=== PATIENT | male | born 1995 | race Two or more races ===

== ENCOUNTER 2021-10-03 18:46 | Inpatient (IN) | payer MEDICAID, OTHER ==
[~2021-10-03] VITALS: Ht 167.6 cm; Wt 88.5 kg
[2021-10-03] MEDS ORDERED: DIPH25 PO (18:48)
[2021-10-03] MEDS ORDERED: ARIP5TAB37 PO (18:48)
[2021-10-03] MEDS ORDERED: TOPI25 PO (18:48)
[2021-10-03 20:34] LABS: BASOPHILS % (AUTO) 1.1 % (0.0-2.0); EOSINOPHILS % (AUTO) 0.8 % (1.0-6.0); HEMATOCRIT 49.1 % (41-53); HEMOGLOBIN 16.5 g/dL (13.5-17.5); LYMPHOCYTES # (AUTO) 2.6 K/uL (1.0-4.8); LYMPHOCYTES % (AUTO) 30.7 % (22.0-44.0); MEAN CORPUSCULAR HEMOGLOBIN 28.9 pg (26.0-34.0); MEAN CORPUSCULAR HGB CONC 33.6 G/dL (31.0-37.0); MEAN CORPUSCULAR VOLUME 86 fL (80-100); MONOCYTES # (AUTO) 0.6 K/uL (0.1-1.0); MONOCYTES % (AUTO) 7.2 % (2.0-9.0); NEUTROPHILS # (AUTO) 5.1 K/uL (1.8-7.7); NEUTROPHILS % (AUTO) 60.2 % (40.0-70.0); PLATELET COUNT (AUTO) 351 K/uL (150-450); RED BLOOD CELL COUNT(AUTO) 5.72 MIL/uL (4.50-5.90); RED CELL DISTRIBUTION WIDTH 14.7 % (11.5-14.5)
[2021-10-03 20:46] LABS: ANION GAP 13 mmol/L (8-16); CALCIUM, TOTAL 9.5 mg/dL (8.8-10.5); CARBON DIOXIDE 23 mmol/L (22-29); CHLORIDE 108 mmol/L (98-107); CREATININE 1.22 mg/dL (0.60-1.30); GLOMERULAR FILTR. RATE CALC > 60 mL/min (>60); GLUCOSE,RANDOM 101 mg/dL (70-110); POTASSIUM 3.6 mmol/L (3.5-5.1); SODIUM SERUM 144 mmol/L (136-145); UREA NITROGEN, BLOOD 13 mg/dL (7-18)
[2021-10-03 20:51] LABS: ALANINE AMINOTRANSFERASE 42 U/L (12-78); ALBUMIN 4.6 g/dL (3.4-5.0); ALKALINE PHOSPHATASE 126 U/L (46-116); ASPARTATE AMINOTRANSFERASE 31 U/L (15-37); BILIRUBIN,TOTAL 1.2 mg/dL (0.1-1.0); TOTAL PROTEIN, SERUM 8.1 g/dL (6.4-8.2)
[2021-10-03] MEDS ORDERED: DiphenhydrAMINE HCL 50 MG/ML VIAL IM ONE (22:15)
[2021-10-03] MEDS ORDERED: LORazepam 2 MG/ML VIAL IM ONE (22:15)
[2021-10-03] MEDS ORDERED: HALOPERIDOL LACTATE 5 MG/ML VIAL IM ONE ×2 (22:15→22:30)
[2021-10-03 23:02] LABS: COVID AG,FIA SOURCE NASAL SWAB
[2021-10-03] MEDS ORDERED: TOPI100T37 PO (23:47)
[2021-10-03] MEDS ORDERED: ARIP10TA38 PO (23:47)
[2021-10-03] MEDS ORDERED: DIPH50CA38 PO (23:47)
[2021-10-04 00:45] LABS: AMPHET/METH SCREEN,URINE NEGATIVE (NEGATIVE); BARBITURATE SCREEN, URINE NEGATIVE (NEGATIVE); BENZODIAZEPINES SCREEN,URINE NEGATIVE (NEGATIVE); CANNABINOID SCREEN,URINE NEGATIVE (NEGATIVE); COCAINE SCREEN,URINE NEGATIVE (NEGATIVE); METHADONE SCREEN, URINE NEGATIVE (NEGATIVE); OPIATE SCREEN,URINE NEGATIVE (NEGATIVE)
[2021-10-04 00:48] LABS: PHENCYCLIDINE SCREEN,URINE NEGATIVE (NEGATIVE)
[2021-10-04 01:17] LABS: APPEARANCE,URINE TURBID (CLEAR); BILIRUBIN,URINE NEGATIVE (NEGATIVE); GLUCOSE, URINE (UA) NEGATIVE (NEGATIVE); LEUKOCYTE ESTERASE ,URINE NEGATIVE (NEGATIVE); NITRATE,URINE NEGATIVE (NEGATIVE); OCCULT BLOOD,URINE TRACE (NEGATIVE); PH,URINE 5.5 (5.0-8.0); PROTEIN,URINE 30-70 mg/dL (NEGATIVE); SPECIFIC GRAVITIY, URINE 1.034 (1.003-1.030); UROBILINOGEN,URINE <=1.0 mg/dL (<=1.0)
[2021-10-04 01:28] LABS: AMORPHOUS SEDIMENT,UR Many /LPF (None Seen); BACTERIA,URINE None Seen /HPF (None Seen); RBC,URINE 0-2 /HPF (0-2); WBC,URINE None Seen /HPF (0-5)
[2021-10-04] MEDS: ZOLPIDEM TARTRATE 10 MG TABLET PO PRN (03:31)
[2021-10-04 10:48] VITALS: BP 112/74
[2021-10-04] MEDS ORDERED: DiphenhydrAMINE HCL 50 MG/ML VIAL ONE (11:48)
[2021-10-04] MEDS ORDERED: LORazepam 2 MG/ML VIAL ONE (11:48)
[2021-10-04] MEDS ORDERED: HALOPERIDOL LACTATE 5 MG/ML VIAL ONE (11:48)
[2021-10-04] MEDS ORDERED: DiphenhydrAMINE HCL 50 MG/ML VIAL IM ONE (12:00)
[2021-10-04] MEDS ORDERED: HALOPERIDOL LACTATE 5 MG/ML VIAL IM ONE (12:00)
[2021-10-04] MEDS ORDERED: LORazepam 2 MG/ML VIAL IM ONE (12:00)
[2021-10-04] MEDS: LORazepam 2 MG TABLET PO PRN (16:16)
[2021-10-04] MEDS: HALOPERIDOL 5 MG TABLET PO PRN (16:16)
[2021-10-04 16:34] VITALS: BP 112/72
[2021-10-05] MEDS ORDERED: ACETAMINOPHEN 325 MG TABLET PO PRN (06:30)
[2021-10-05] MEDS ORDERED: LOPERAMIDE HCL 2 MG CAPSULE PO PRN (06:30)
[2021-10-05] MEDS ORDERED: DOCUSATE SODIUM 100 MG CAPSULE PO PRN (06:30)
[2021-10-05] MEDS ORDERED: ALBUTEROL SULFATE HFA 90 MCG/PUFF 8 GM INHALER IH PRN (06:30)
[2021-10-05] MEDS ORDERED: PETROLATUM,WHITE 28 GM JELLY TP PRN (06:30)
[2021-10-05] MEDS ORDERED: NICOTINE 14 MG/24 HOUR PATCH TD PRN (06:30)
[2021-10-05] MEDS ORDERED: ONDANSETRON HCL 4 MG TABLET PO PRN (06:30)
[2021-10-05] MEDS ORDERED: MAG HYDROX/AL HYDROX/SIMETH ES 30 ML SUSPENSION UDCUP PO PRN (06:30)
[2021-10-05] MEDS ORDERED: CloNIDine HCL 0.1 MG TABLET PO PRN (06:30)
[2021-10-05] MEDS ORDERED: MAGNESIUM HYDROXIDE SUSPENSION 30 ML UDCUP PO PRN (06:30)
[2021-10-05] MEDS ORDERED: GuaiFENesin/D-METHORPHAN [SUGAR-FREE] 200-20MG/10 ML SYRUP UDCUP PO PRN (06:30)
[2021-10-05 06:47] VITALS: BP 116/74
[2021-10-05 08:10] VITALS: BP 121/86
[2021-10-05] MEDS: LORazepam 2 MG TABLET PO PRN ×3 (08:54→20:23)
[2021-10-05] MEDS: HALOPERIDOL 5 MG TABLET PO PRN ×2 (08:54→16:08)
[2021-10-05] MEDS: TOPIRAMATE 100 MG TABLET PO SCH ×2 (09:38→16:08)
[2021-10-05 16:08] VITALS: BP 116/80
[2021-10-05] MEDS: ARIPiprazole 15 MG TABLET PO SCH (20:23)
[2021-10-05] MEDS: ZOLPIDEM TARTRATE 10 MG TABLET PO PRN (20:23)
[2021-10-06 00:30] VITALS: BP 116/78
[2021-10-06 08:18] VITALS: BP 118/71
[2021-10-06] MEDS: TOPIRAMATE 100 MG TABLET PO SCH ×2 (08:23→16:35)
[2021-10-06] MEDS: LORazepam 2 MG TABLET PO PRN ×3 (08:23→16:35)
[2021-10-06] MEDS: HALOPERIDOL 5 MG TABLET PO PRN ×3 (08:23→16:35)
[2021-10-06 16:10] VITALS: BP 140/88
[2021-10-06] MEDS: ZOLPIDEM TARTRATE 10 MG TABLET PO PRN (20:33)
[2021-10-06] MEDS: ARIPiprazole 15 MG TABLET PO SCH (20:33)
[2021-10-07 04:41] VITALS: BP 121/79
[2021-10-07] MEDS: TOPIRAMATE 100 MG TABLET PO SCH ×2 (08:04→16:31)
[2021-10-07] MEDS: LORazepam 2 MG TABLET PO PRN ×2 (08:05→16:31)
[2021-10-07] MEDS: HALOPERIDOL 5 MG TABLET PO PRN ×2 (08:05→16:32)
[2021-10-07 08:21] VITALS: BP 124/74
[2021-10-07 16:05] VITALS: BP 112/72
[2021-10-07] MEDS: ARIPiprazole 15 MG TABLET PO SCH (20:14)
[2021-10-07] MEDS: ZOLPIDEM TARTRATE 10 MG TABLET PO PRN (23:42)
[2021-10-08 08:04] VITALS: BP 120/77
[2021-10-08] MEDS: LORazepam 2 MG TABLET PO PRN ×2 (09:13→22:23)
[2021-10-08] MEDS: TOPIRAMATE 100 MG TABLET PO SCH ×2 (09:14→16:25)
[2021-10-08] MEDS: HALOPERIDOL 5 MG TABLET PO PRN (09:14)
[2021-10-08 16:26] VITALS: BP 114/75
[2021-10-08] MEDS: ARIPiprazole 15 MG TABLET PO SCH (20:32)
[2021-10-09] MEDS: ZOLPIDEM TARTRATE 10 MG TABLET PO PRN ×2 (00:36→20:26)
[2021-10-09 05:08] VITALS: BP 112/70
[2021-10-09 08:12] VITALS: BP 116/68
[2021-10-09] MEDS: HALOPERIDOL 5 MG TABLET PO PRN ×2 (08:12→20:25)
[2021-10-09] MEDS: LORazepam 2 MG TABLET PO PRN ×2 (08:12→20:26)
[2021-10-09] MEDS: TOPIRAMATE 100 MG TABLET PO SCH ×3 (08:12→17:43)
[2021-10-09] MEDS ORDERED: DiphenhydrAMINE HCL 50 MG/ML VIAL ONE (15:58)
[2021-10-09] MEDS ORDERED: LORazepam 2 MG/ML VIAL ONE (15:58)
[2021-10-09] MEDS ORDERED: HALOPERIDOL LACTATE 5 MG/ML VIAL ONE (15:58)
[2021-10-09] MEDS ORDERED: HALOPERIDOL LACTATE 5 MG/ML VIAL IM ONE (16:00)
[2021-10-09] MEDS ORDERED: LORazepam 2 MG/ML VIAL IM ONE (16:00)
[2021-10-09] MEDS ORDERED: DiphenhydrAMINE HCL 50 MG/ML VIAL IM ONE (16:00)
[2021-10-09 16:25] VITALS: BP 111/79
[2021-10-09 17:45] VITALS: BP 114/76
[2021-10-09] MEDS: ARIPiprazole 15 MG TABLET PO SCH (20:25)
[2021-10-10 01:22] VITALS: BP 111/77
[2021-10-10] MEDS: HALOPERIDOL 5 MG TABLET PO PRN (08:17)
[2021-10-10] MEDS: TOPIRAMATE 100 MG TABLET PO SCH ×2 (08:17→16:48)
[2021-10-10] MEDS: LORazepam 2 MG TABLET PO PRN (08:17)
[2021-10-10] MEDS ORDERED: DiphenhydrAMINE HCL 50 MG/ML VIAL IM ONE (14:30)
[2021-10-10] MEDS ORDERED: LORazepam 2 MG/ML VIAL IM ONE (14:30)
[2021-10-10] MEDS ORDERED: HALOPERIDOL LACTATE 5 MG/ML VIAL IM ONE (14:30)
[2021-10-10 16:09] VITALS: BP 104/60
[2021-10-10] MEDS: ZOLPIDEM TARTRATE 10 MG TABLET PO PRN (20:34)
[2021-10-10] MEDS: ARIPiprazole 15 MG TABLET PO SCH (20:34)
[2021-10-11 00:21] LABS: GLUCOMETER DEV NAME(LOC) POC.BV
[2021-10-11 05:46] VITALS: BP 112/74
[2021-10-11] MEDS: LORazepam 2 MG TABLET PO PRN ×3 (08:10→18:05)
[2021-10-11] MEDS: TOPIRAMATE 100 MG TABLET PO SCH ×2 (08:10→16:16)
[2021-10-11] MEDS: HALOPERIDOL 5 MG TABLET PO PRN ×3 (08:10→18:13)
[2021-10-11 09:07] VITALS: BP 112/80
[2021-10-11 16:50] VITALS: BP 108/73
[2021-10-11] MEDS ORDERED: DiphenhydrAMINE HCL 50 MG/ML VIAL IM ONE (17:45)
[2021-10-11] MEDS ORDERED: ChlorproMAZINE HCL 50 MG/2 ML AMP ONE (17:45)
[2021-10-11] MEDS ORDERED: ChlorproMAZINE HCL 50 MG/2 ML AMP IM ONE (17:45)
[2021-10-11] MEDS: ARIPiprazole 15 MG TABLET PO SCH (21:00)
[2021-10-12 00:24] VITALS: BP 113/82
[2021-10-12 08:10] VITALS: BP 121/80
[2021-10-12] MEDS: TOPIRAMATE 100 MG TABLET PO SCH ×2 (08:45→16:31)
[2021-10-12] MEDS: HALOPERIDOL 5 MG TABLET PO PRN (08:45)
[2021-10-12] MEDS: LORazepam 2 MG TABLET PO PRN (08:45)
[2021-10-12] MEDS ORDERED: ChlorproMAZINE HCL 50 MG/2 ML AMP ONE (09:26)
[2021-10-12] MEDS ORDERED: DiphenhydrAMINE HCL 50 MG/ML VIAL ONE (09:26)
[2021-10-12] MEDS ORDERED: DiphenhydrAMINE HCL 50 MG/ML VIAL IM ONE (09:30)
[2021-10-12] MEDS ORDERED: ChlorproMAZINE HCL 50 MG/2 ML AMP IM ONE (09:30)
[2021-10-12] MEDS: DIVALPROEX SODIUM 500 MG DR TABLET PO SCH ×2 (09:56→16:31)
[2021-10-12] MEDS: ChlorproMAZINE HCL 50 MG TABLET PO SCH ×2 (13:37→16:31)
[2021-10-12 16:20] VITALS: BP 122/83
[2021-10-12] MEDS: ARIPiprazole 15 MG TABLET PO SCH (20:09)
[2021-10-12] MEDS: ZOLPIDEM TARTRATE 10 MG TABLET PO PRN (21:44)
[2021-10-13 05:14] VITALS: BP 100/64
[2021-10-13 08:04] VITALS: BP 100/64
[2021-10-13] MEDS: TOPIRAMATE 100 MG TABLET PO SCH ×2 (08:23→16:15)
[2021-10-13] MEDS: LORazepam 2 MG TABLET PO PRN ×3 (08:23→18:29)
[2021-10-13] MEDS: ChlorproMAZINE HCL 50 MG TABLET PO SCH ×3 (08:23→16:15)
[2021-10-13] MEDS: HALOPERIDOL 5 MG TABLET PO PRN ×3 (08:23→18:29)
[2021-10-13] MEDS: DIVALPROEX SODIUM 500 MG DR TABLET PO SCH ×2 (08:23→16:15)
[2021-10-13 16:05] VITALS: BP 113/62
[2021-10-13] MEDS: ARIPiprazole 15 MG TABLET PO SCH (20:05)
[2021-10-14 03:57] VITALS: BP 115/78
[2021-10-14] MEDS: ChlorproMAZINE HCL 50 MG TABLET PO SCH ×3 (08:01→16:09)
[2021-10-14] MEDS: HALOPERIDOL 5 MG TABLET PO PRN (08:01)
[2021-10-14] MEDS: TOPIRAMATE 100 MG TABLET PO SCH ×2 (08:01→16:09)
[2021-10-14] MEDS: LORazepam 2 MG TABLET PO PRN (08:01)
[2021-10-14] MEDS: DIVALPROEX SODIUM 500 MG DR TABLET PO SCH ×2 (08:01→16:09)
[2021-10-14 08:03] VITALS: BP 106/71
[2021-10-14 16:03] VITALS: BP 114/68
[2021-10-14] MEDS: ARIPiprazole 15 MG TABLET PO SCH (20:06)
[2021-10-15 03:21] VITALS: BP 101/66
[2021-10-15 08:17] VITALS: BP 108/73
[2021-10-15] MEDS: HALOPERIDOL 5 MG TABLET PO PRN ×2 (09:18→16:01)
[2021-10-15] MEDS: DIVALPROEX SODIUM 500 MG DR TABLET PO SCH ×2 (09:18→16:01)
[2021-10-15] MEDS: ChlorproMAZINE HCL 50 MG TABLET PO SCH ×3 (09:18→16:01)
[2021-10-15] MEDS: TOPIRAMATE 100 MG TABLET PO SCH ×2 (09:18→16:01)
[2021-10-15] MEDS: LORazepam 2 MG TABLET PO PRN ×2 (09:18→16:01)
[2021-10-15 16:03] VITALS: BP 107/70
[2021-10-15] MEDS: ARIPiprazole 15 MG TABLET PO SCH (20:17)
[2021-10-16 00:45] VITALS: BP 114/79
[2021-10-16] MEDS: ChlorproMAZINE HCL 50 MG TABLET PO SCH ×3 (08:01→16:15)
[2021-10-16] MEDS: HALOPERIDOL 5 MG TABLET PO PRN ×2 (08:01→16:15)
[2021-10-16] MEDS: TOPIRAMATE 100 MG TABLET PO SCH ×2 (08:01→16:15)
[2021-10-16] MEDS: DIVALPROEX SODIUM 500 MG DR TABLET PO SCH ×2 (08:01→16:15)
[2021-10-16] MEDS: LORazepam 2 MG TABLET PO PRN ×2 (08:01→21:13)
[2021-10-16 08:14] VITALS: BP 102/63
[2021-10-16 16:26] VITALS: BP 109/76
[2021-10-16] MEDS: ZOLPIDEM TARTRATE 10 MG TABLET PO PRN (21:13)
[2021-10-16] MEDS: ARIPiprazole 15 MG TABLET PO SCH (21:13)
[2021-10-17 04:03] VITALS: BP 123/75
[2021-10-17 08:06] VITALS: BP 120/74
[2021-10-17] MEDS: HALOPERIDOL 5 MG TABLET PO PRN (08:10)
[2021-10-17] MEDS: ChlorproMAZINE HCL 50 MG TABLET PO SCH ×3 (08:10→16:01)
[2021-10-17] MEDS: TOPIRAMATE 100 MG TABLET PO SCH ×2 (08:10→16:01)
[2021-10-17] MEDS: LORazepam 2 MG TABLET PO PRN (08:10)
[2021-10-17] MEDS: DIVALPROEX SODIUM 500 MG DR TABLET PO SCH ×2 (08:10→16:02)
[2021-10-17 16:32] VITALS: BP 120/68
[2021-10-17] MEDS: ARIPiprazole 15 MG TABLET PO SCH (20:06)
[2021-10-18 00:47] VITALS: BP 116/62
[2021-10-18] MEDS: ZOLPIDEM TARTRATE 10 MG TABLET PO PRN (01:30)
[2021-10-18] MEDS: TOPIRAMATE 100 MG TABLET PO SCH ×2 (08:04→17:18)
[2021-10-18] MEDS: DIVALPROEX SODIUM 500 MG DR TABLET PO SCH ×2 (08:04→17:18)
[2021-10-18] MEDS: ChlorproMAZINE HCL 50 MG TABLET PO SCH ×3 (08:04→17:18)
[2021-10-18 08:19] VITALS: BP 123/69
[2021-10-18 11:01] LABS: GLUCOMETER DEV NAME(LOC) POC.BV
[2021-10-18] MEDS ORDERED: DiphenhydrAMINE HCL 50 MG/ML VIAL IM ONE (14:30)
[2021-10-18] MEDS ORDERED: LORazepam 2 MG/ML VIAL IM ONE (14:30)
[2021-10-18] MEDS ORDERED: HALOPERIDOL LACTATE 5 MG/ML VIAL IM ONE (14:30)
[2021-10-18 16:07] VITALS: BP 113/74
[2021-10-18] MEDS: BACITRACIN 28 GM OINTMENT TP SCH (17:23)
[2021-10-18] MEDS: ARIPiprazole 15 MG TABLET PO SCH (20:45)
[2021-10-19 03:33] VITALS: BP 111/75
[2021-10-19 08:04] VITALS: BP 107/68
[2021-10-19] MEDS: TOPIRAMATE 100 MG TABLET PO SCH ×2 (08:14→17:15)
[2021-10-19] MEDS: ChlorproMAZINE HCL 50 MG TABLET PO SCH ×3 (08:14→17:15)
[2021-10-19] MEDS: DIVALPROEX SODIUM 500 MG DR TABLET PO SCH ×2 (08:14→17:15)
[2021-10-19] MEDS: BACITRACIN 28 GM OINTMENT TP SCH (08:15)
[2021-10-19] MEDS: LORazepam 2 MG TABLET PO PRN ×2 (08:20→17:15)
[2021-10-19 10:02] VITALS: BP 114/74
[2021-10-19] MEDS ORDERED: HALOPERIDOL LACTATE 5 MG/ML VIAL IM ONE (11:45)
[2021-10-19] MEDS ORDERED: DiphenhydrAMINE HCL 50 MG/ML VIAL IM ONE (11:45)
[2021-10-19] MEDS ORDERED: LORazepam 2 MG/ML VIAL IM ONE (11:45)
[2021-10-19 12:45] VITALS: BP 111/76
[2021-10-19 16:37] VITALS: BP 118/70
[2021-10-19] MEDS: ARIPiprazole 15 MG TABLET PO SCH (21:00)
[2021-10-20] MEDS: IBUPROFEN 400 MG TABLET PO PRN (03:55)
[2021-10-20 04:47] VITALS: BP 123/78
[2021-10-20] MEDS: HALOPERIDOL 5 MG TABLET PO PRN (08:00)
[2021-10-20] MEDS: TOPIRAMATE 100 MG TABLET PO SCH ×2 (08:00→16:51)
[2021-10-20] MEDS: ChlorproMAZINE HCL 50 MG TABLET PO SCH ×3 (08:00→16:51)
[2021-10-20] MEDS: LORazepam 2 MG TABLET PO PRN ×2 (08:00→16:51)
[2021-10-20] MEDS: DIVALPROEX SODIUM 500 MG DR TABLET PO SCH ×2 (08:00→16:51)
[2021-10-20] MEDS: BACITRACIN 28 GM OINTMENT TP SCH (08:02)
[2021-10-20 08:28] VITALS: BP 111/73
[2021-10-20 16:16] VITALS: BP 117/80
[2021-10-20] MEDS: ARIPiprazole 15 MG TABLET PO SCH (20:47)
[2021-10-20] MEDS: ZOLPIDEM TARTRATE 10 MG TABLET PO PRN (20:48)
[2021-10-21 03:59] VITALS: BP 114/80
[2021-10-21] MEDS: ChlorproMAZINE HCL 50 MG TABLET PO SCH ×3 (08:09→16:34)
[2021-10-21] MEDS: TOPIRAMATE 100 MG TABLET PO SCH ×2 (08:09→16:34)
[2021-10-21] MEDS: DIVALPROEX SODIUM 500 MG DR TABLET PO SCH ×2 (08:09→16:34)
[2021-10-21 08:12] VITALS: BP 115/76
[2021-10-21] MEDS: BACITRACIN 28 GM OINTMENT TP SCH (08:13)
[2021-10-21] MEDS: LORazepam 2 MG TABLET PO PRN ×2 (08:13→12:16)
[2021-10-21] MEDS: HALOPERIDOL 5 MG TABLET PO PRN (09:02)
[2021-10-21 16:11] VITALS: BP 109/65
[2021-10-21] MEDS: ARIPiprazole 15 MG TABLET PO SCH (20:45)
[2021-10-22 01:00] VITALS: BP 110/68
[2021-10-22] MEDS: LORazepam 2 MG TABLET PO PRN ×4 (01:28→23:00)
[2021-10-22] MEDS: HALOPERIDOL 5 MG TABLET PO PRN ×2 (01:28→08:56)
[2021-10-22] MEDS: ZOLPIDEM TARTRATE 10 MG TABLET PO PRN (01:28)
[2021-10-22 08:15] VITALS: BP 116/72
[2021-10-22] MEDS: DIVALPROEX SODIUM 500 MG DR TABLET PO SCH ×2 (08:21→16:33)
[2021-10-22] MEDS: TOPIRAMATE 100 MG TABLET PO SCH ×2 (08:21→16:33)
[2021-10-22] MEDS: ChlorproMAZINE HCL 50 MG TABLET PO SCH ×3 (08:21→16:33)
[2021-10-22] MEDS: BACITRACIN 28 GM OINTMENT TP SCH (08:22)
[2021-10-22 16:14] VITALS: BP 109/81
[2021-10-22] MEDS: ARIPiprazole 15 MG TABLET PO SCH (20:59)
[2021-10-23 05:18] VITALS: BP 125/80
[2021-10-23] MEDS: ChlorproMAZINE HCL 50 MG TABLET PO SCH ×3 (08:11→16:23)
[2021-10-23] MEDS: TOPIRAMATE 100 MG TABLET PO SCH ×2 (08:12→16:23)
[2021-10-23] MEDS: DIVALPROEX SODIUM 500 MG DR TABLET PO SCH ×2 (08:12→16:23)
[2021-10-23] MEDS: HALOPERIDOL 5 MG TABLET PO PRN ×2 (08:13→16:23)
[2021-10-23] MEDS: LORazepam 2 MG TABLET PO PRN ×2 (08:13→16:23)
[2021-10-23] MEDS: BACITRACIN 28 GM OINTMENT TP SCH (08:16)
[2021-10-23 09:36] VITALS: BP 123/74
[2021-10-23 16:18] VITALS: BP 106/75
[2021-10-23] MEDS: ARIPiprazole 15 MG TABLET PO SCH (20:30)
[2021-10-24 03:29] VITALS: BP 126/78
[2021-10-24] MEDS: IBUPROFEN 400 MG TABLET PO PRN (04:57)
[2021-10-24] MEDS: LORazepam 2 MG TABLET PO PRN (08:10)
[2021-10-24] MEDS: DIVALPROEX SODIUM 500 MG DR TABLET PO SCH ×2 (08:10→17:04)
[2021-10-24] MEDS: ChlorproMAZINE HCL 50 MG TABLET PO SCH ×3 (08:10→17:04)
[2021-10-24] MEDS: BACITRACIN 28 GM OINTMENT TP SCH (08:10)
[2021-10-24] MEDS: TOPIRAMATE 100 MG TABLET PO SCH ×2 (08:10→17:04)
[2021-10-24] MEDS: HALOPERIDOL 5 MG TABLET PO PRN (08:11)
[2021-10-24 08:20] VITALS: BP 108/73
[2021-10-24 16:17] VITALS: BP 118/72
[2021-10-24] MEDS: ARIPiprazole 15 MG TABLET PO SCH (20:21)
[2021-10-24] MEDS: ZOLPIDEM TARTRATE 10 MG TABLET PO PRN (20:21)
[2021-10-25 05:31] VITALS: BP 115/73
[2021-10-25 08:12] VITALS: BP 113/75
[2021-10-25] MEDS: HALOPERIDOL 5 MG TABLET PO PRN ×2 (08:36→13:38)
[2021-10-25] MEDS: TOPIRAMATE 100 MG TABLET PO SCH ×2 (08:36→16:19)
[2021-10-25] MEDS: DIVALPROEX SODIUM 500 MG DR TABLET PO SCH ×2 (08:36→16:19)
[2021-10-25] MEDS: LORazepam 2 MG TABLET PO PRN ×2 (08:36→13:38)
[2021-10-25] MEDS: ChlorproMAZINE HCL 50 MG TABLET PO SCH ×3 (08:36→16:20)
[2021-10-25] MEDS: BACITRACIN 28 GM OINTMENT TP SCH (08:37)
[2021-10-25 16:01] LABS: GLUCOMETER DEV NAME(LOC) POC.BV
[2021-10-25 16:09] VITALS: BP 136/82
[2021-10-25] MEDS: ARIPiprazole 15 MG TABLET PO SCH (20:37)
[2021-10-26 03:44] VITALS: BP 108/78
[2021-10-26] MEDS: DIVALPROEX SODIUM 500 MG DR TABLET PO SCH ×2 (08:31→16:10)
[2021-10-26] MEDS: BACITRACIN 28 GM OINTMENT TP SCH (08:31)
[2021-10-26] MEDS: TOPIRAMATE 100 MG TABLET PO SCH ×2 (08:31→16:10)
[2021-10-26] MEDS: ChlorproMAZINE HCL 50 MG TABLET PO SCH ×3 (08:31→16:10)
[2021-10-26 09:41] VITALS: BP 104/69
[2021-10-26] MEDS: HALOPERIDOL 5 MG TABLET PO PRN (09:51)
[2021-10-26] MEDS: LORazepam 2 MG TABLET PO PRN (09:51)
[2021-10-26 17:12] VITALS: BP 100/62
[2021-10-26] MEDS: ARIPiprazole 15 MG TABLET PO SCH (20:01)
[2021-10-27 03:31] VITALS: BP 102/71
[2021-10-27] MEDS: ChlorproMAZINE HCL 50 MG TABLET PO SCH ×3 (08:15→16:32)
[2021-10-27] MEDS: DIVALPROEX SODIUM 500 MG DR TABLET PO SCH ×2 (08:15→16:32)
[2021-10-27] MEDS: HALOPERIDOL 5 MG TABLET PO PRN ×2 (08:16→17:24)
[2021-10-27] MEDS: TOPIRAMATE 100 MG TABLET PO SCH ×2 (08:16→16:32)
[2021-10-27] MEDS: LORazepam 2 MG TABLET PO PRN ×2 (08:16→17:24)
[2021-10-27] MEDS: BACITRACIN 28 GM OINTMENT TP SCH (08:18)
[2021-10-27 08:23] VITALS: BP 112/75
[2021-10-27 16:10] VITALS: BP 115/77
[2021-10-27] MEDS: ZOLPIDEM TARTRATE 10 MG TABLET PO PRN (20:11)
[2021-10-27] MEDS: ARIPiprazole 15 MG TABLET PO SCH (20:11)
[2021-10-27] MEDS: IBUPROFEN 400 MG TABLET PO PRN (20:12)
[2021-10-28 05:57] VITALS: BP 106/76
[2021-10-28 08:18] VITALS: BP 116/71
[2021-10-28] MEDS: ChlorproMAZINE HCL 50 MG TABLET PO SCH ×3 (08:20→16:03)
[2021-10-28] MEDS: DIVALPROEX SODIUM 500 MG DR TABLET PO SCH ×2 (08:20→16:03)
[2021-10-28] MEDS: BACITRACIN 28 GM OINTMENT TP SCH (08:20)
[2021-10-28] MEDS: TOPIRAMATE 100 MG TABLET PO SCH ×2 (08:20→16:03)
[2021-10-28 16:37] VITALS: BP 110/75
[2021-10-28] MEDS: ARIPiprazole 15 MG TABLET PO SCH (21:17)
[2021-10-29 01:28] VITALS: BP 124/89
[2021-10-29] MEDS: HALOPERIDOL 5 MG TABLET PO PRN ×2 (02:07→08:10)
[2021-10-29] MEDS: LORazepam 2 MG TABLET PO PRN ×3 (02:07→16:02)
[2021-10-29] MEDS: ZOLPIDEM TARTRATE 10 MG TABLET PO PRN ×2 (02:07→20:23)
[2021-10-29] MEDS: TOPIRAMATE 100 MG TABLET PO SCH ×2 (08:10→16:02)
[2021-10-29] MEDS: ChlorproMAZINE HCL 50 MG TABLET PO SCH ×3 (08:10→16:02)
[2021-10-29] MEDS: DIVALPROEX SODIUM 500 MG DR TABLET PO SCH ×2 (08:10→16:02)
[2021-10-29] MEDS: BACITRACIN 28 GM OINTMENT TP SCH (08:23)
[2021-10-29 08:40] VITALS: BP 110/67
[2021-10-29 16:16] VITALS: BP 109/74
[2021-10-29] MEDS: ARIPiprazole 15 MG TABLET PO SCH (20:23)
[2021-10-30 05:02] VITALS: BP 109/76
[2021-10-30 08:27] VITALS: BP 108/74
[2021-10-30] MEDS: ChlorproMAZINE HCL 50 MG TABLET PO SCH ×2 (09:03→13:04)
[2021-10-30] MEDS: BACITRACIN 28 GM OINTMENT TP SCH (09:03)
[2021-10-30] MEDS: TOPIRAMATE 100 MG TABLET PO SCH (09:03)
[2021-10-30] MEDS: DIVALPROEX SODIUM 500 MG DR TABLET PO SCH (09:03)
[2021-10-30] MEDS: LORazepam 2 MG TABLET PO PRN (09:04)
[2021-10-30] MEDS: HALOPERIDOL 5 MG TABLET PO PRN (09:25)
[2021-10-30] MEDS ORDERED: CHLO50TA61 PO ×2 (12:04→12:27)
[2021-10-30] MEDS ORDERED: DIVA-112 PO ×2 (12:04→12:27)
[2021-10-30] MEDS ORDERED: TOPI100T37 PO (12:27)
[2021-10-30] MEDS ORDERED: ARIP15TA27 PO (12:27)
== END 2021-10-30 13:30 | disposition home or self-care (01) | DRG 750 ==
LOC: EMS 18:46 → B3A 10-04 06:32
PROVIDERS: ADMIT Psychiatry & Neurology Child & Adolescent Psychiatry; ATTEND Psychiatry & Neurology Child & Adolescent Psychiatry
DX: F25.0 Schizoaffective disorder, bipolar type (principal); R17 Unspecified jaundice; E66.9 Obesity, unspecified; G44.209 Tension-type headache, unspecified, not intractable; F41.9 Anxiety disorder, unspecified; Z20.822 Contact with and (suspected) exposure to COVID-19; Z68.32 Body mass index [BMI] 32.0-32.9, adult; Z59.00 Homelessness unspecified; Z91.19 Patient's noncompliance with other medical treatment and regimen
CPT/HCPCS: 80053; 80164; 81001; 85025; 87081; 99285; G0480; J1200; J1630; J2060; J3230